=== PATIENT | male | born 1995 | race Caucasian/White ===

== ENCOUNTER 2016-12-28 22:51 | Emergency (ER) | payer OTHER ==
--- NOTE | 2016-12-28 22:57 | ERPHSYRPT ---
- History of Present Illness Time Seen by Provider: 12/28/16 22:56 Source: patient Exam Limitations: no limitations Physician History: Pt. with L lower tooth pain for past 2-3 days. States have dental caries and have had previous teeth pulled. Tried temporary tooth filling that did not help. Have not taken any medicines as well. No fever, chills or systemic symptoms. Timing/Duration: day(s) (3) Severity: mild Modifying Factors: Improves With: eating (worsens), other (drinking soda) Associated Symptoms: denies symptoms Allergies/Adverse Reactions: No Known Drug Allergies Allergy (Unverified 04/17/14 18:43) Home Medications: No Home Meds 1 ea UD 04/17/14 [History] Hx Tetanus, Diphtheria Vaccination/Date Given: Yes (UNKNOWN) Hx Influenza Vaccination/Date Given: No Hx Pneumococcal Vaccination/Date Given: No - Review of Systems Constitutional: No Fever, No Chills Eyes: No Symptoms Ears, Nose, & Throat: No Symptoms, Other (tooth pain), No Loose Teeth, No Throat Swelling Respiratory: No Cough, No Dyspnea Cardiac: No Chest Pain, No Edema, No Syncope Abdominal/Gastrointestinal: No Abdominal Pain, No Nausea, No Vomiting, No Diarrhea Genitourinary Symptoms: No Dysuria Musculoskeletal: No Back Pain, No Neck Pain Skin: No Rash Neurological: No Dizziness, No Focal Weakness, No Sensory Changes Psychological: No Symptoms Endocrine: No Symptoms All Other Systems: Reviewed and Negative - Past Medical History Pertinent Past Medical History: Yes Neurological History: No Pertinent History ENT History: No Pertinent History Cardiac History: No Pertinent History Respiratory History: Other Endocrine Medical History: No Pertinent History Musculoskeletal History: No Pertinent History GI Medical History: No Pertinent History History: No Pertinent History Psycho-Social History: No Pertinent History Other Medical History: SCOLIOSIS - Past Surgical History Past Surgical History: No Neuro Surgical History: No Pertinent History Cardiac: No Pertinent History Respiratory: No Pertinent History Gastrointestinal: No Pertinent History Genitourinary: No Pertinent History Musculoskeletal: No Pertinent History Male Surgical History: No Pertinent History - Social History Smoking Status: Current every day smoker How long have you smoked: 2 Exposure to second hand smoke: Yes Drug Use: none Patient Lives Alone: Yes - Nursing Vital Signs Nursing Vital Signs: Initial Vital Signs Temperature 98.2 F Temperature Source Oral Pulse Rate 81 Respiratory Rate 18 Blood Pressure [Right Arm] 144/82 Pain Intensity 9 - Physical Exam General Appearance: no apparent distress, alert Eye Exam: PERRL/EOMI, eyes nml inspection Ears, Nose, Throat Exam: TMs normal, pharynx normal, moist mucous membranes, other (Multiple dental caries noted. No increase gum swelling, minimal tenderness to palpation to L lower molar area.) Neck Exam: normal inspection, non-tender, supple, full range of motion Respiratory Exam: normal breath sounds, lungs clear, No respiratory distress Cardiovascular Exam: regular rate/rhythm, normal heart sounds, normal peripheral pulses Gastrointestinal/Abdomen Exam: soft, normal bowel sounds, No tenderness, No mass Back Exam: normal inspection, normal range of motion, No CVA tenderness, No vertebral tenderness Extremity Exam: normal inspection, normal range of motion, pelvis stable Neurologic Exam: alert, oriented x 3, cooperative, normal mood/affect, nml cerebellar function, nml station & gait, sensation nml, No motor deficits Skin Exam: normal color, warm, dry, No rash Lymphatic Exam: No adenopathy - Course Nursing assessment & vital signs reviewed: Yes - Progress Progress: improved Progress Note: 12/28/16 23:10 Pt. given PenVK and Motrin - Departure Time of Disposition: 23:10 Departure Disposition: Home Clinical Impression: Dental caries Condition: Stable Critical Care Time: No Instructions: Tooth Decay Additional Instructions: RX: PenVK Motrin 800mg every 8 hrs with food for pain Follow up with your dentist in 2-3 days Return for worse pain, swelling, fever or any problems. Prescriptions: Penicillin V Potassium 500 mg PO QID #40 tablet
[2016-12-28] MEDS ORDERED: PEN-VEE K PO ONE (23:15)
[2016-12-28] MEDS ORDERED: MOTRIN 600 MG PO ONE (23:15)
[2016-12-28] MEDS ORDERED: MOTRIN 600 MG ONE (23:25)
[2016-12-28] MEDS ORDERED: PEN-VEE K ONE (23:25)
[2016-12-28 23:42] VITALS: BP 110/57; PULSE 90; O2SAT 98
== END 2016-12-28 23:50 | disposition home or self-care (01) ==
LOC: ED 22:51
DX: K02.9 Dental caries, unspecified (principal)
CPT/HCPCS: 99281; 99283; A9270-GY

== ENCOUNTER 2021-06-07 20:29 | Emergency (ER) | payer OTHER ==
[2021-06-07 20:40] VITALS: O2SAT 99
[2021-06-07] MEDS ORDERED: Cleocin Phosphate IV 600 MG/4 ML IM STA (21:03)
--- NOTE | 2021-06-07 21:05 | ERPHSYRPT ---
- History of Present Illness Time Seen by Provider: 06/07/21 20:45 Source: patient Exam Limitations: no limitations Patient Subjective Stated Complaint: I have a spot on my leg that really hurts, draining just a little Triage Nursing Assessment: pt has abscess area to rt upper thigh/groin area. Reddened and warm to touch, no drainage noted at this time. Bruised around area due to pt squeezing it. Physician History: Patient is a 25-year-old male presents to our ED for evaluation of cellulitis to his right upper thigh. Patient states that the area started off and is a papular lesion. Patient has been trying to squeeze it and "pop it". Patient states the area became more red and tender. Patient currently has a 4 x 4 centimeter area of cellulitis. No lymphangitis. Early right inguinal lymphadenopathy observed. No involvement of the scrotum. No scrotal pain or tenderness. No abdominal pain. No trauma. No fever. Tetanus is up-to-date. Symptoms are constant. Symptoms are moderate in intensity. Pain described as an ache that is well localized. Pain primarily with palpation. Minimal to no pain at rest. Timing/Duration: today Severity: moderate Modifying Factors: Improves With: nothing Associated Symptoms: denies symptoms Allergies/Adverse Reactions: tramadol Adverse Reaction (Severe, Verified 06/07/21 20:49) Difficulty Swallowing Home Medications: Buspirone HCl [Buspar] 30 mg PO BID 06/07/21 [History] Hx Tetanus, Diphtheria Vaccination/Date Given: Yes Hx Influenza Vaccination/Date Given: No Hx Pneumococcal Vaccination/Date Given: No Immunizations Up to Date: Yes Travel Risk - International Travel Have you traveled outside of the country in past 3 weeks: No - Coronavirus Screening Are you exhibiting any of the following symptoms?: No Close contact with a COVID-19 positive Pt in past 14-21 Days: No - Vaccine Status Have you recieved a Covid-19 vaccination: No - Review of Systems Constitutional: No Symptoms, No Fever, No Chills Eyes: No Symptoms Ears, Nose, & Throat: No Symptoms Respiratory: No Symptoms, No Cough, No Dyspnea Cardiac: No Symptoms, No Chest Pain, No Edema, No Syncope Abdominal/Gastrointestinal: No Symptoms, No Abdominal Pain, No Nausea, No Vomiting, No Diarrhea Genitourinary Symptoms: No Symptoms, No Dysuria Musculoskeletal: No Symptoms, No Back Pain, No Neck Pain Skin: No Symptoms, No Rash Neurological: No Symptoms, No Dizziness, No Focal Weakness, No Sensory Changes Psychological: No Symptoms Endocrine: No Symptoms Hematologic/Lymphatic: No Symptoms Immunological/Allergic: No Symptoms All Other Systems: Reviewed and Negative - Past Medical History Pertinent Past Medical History: Yes Neurological History: No Pertinent History ENT History: No Pertinent History Cardiac History: Other Respiratory History: Asthma Endocrine Medical History: No Pertinent History Musculoskeletal History: No Pertinent History GI Medical History: No Pertinent History History: No Pertinent History Psycho-Social History: No Pertinent History Male Reproductive Disorders: No Pertinent History Other Medical History: heart murmur - Past Surgical History Past Surgical History: Yes Neuro Surgical History: No Pertinent History Cardiac: No Pertinent History Respiratory: No Pertinent History Gastrointestinal: No Pertinent History Genitourinary: No Pertinent History Musculoskeletal: Orthopedic Surgery Male Surgical History: No Pertinent History - Social History Smoking Status: Current every day smoker How long have you smoked: 4 yrs Exposure to second hand smoke: Yes Drug Use: none Patient Lives Alone: No - Nursing Vital Signs Nursing Vital Signs: Initial Vital Signs Temperature 97.9 F 06/07/21 20:30 Pulse Rate 97 H 06/07/21 20:30 Respiratory Rate 18 06/07/21 20:30 Blood Pressure 114/80 06/07/21 20:30 O2 Sat by Pulse Oximetry 99 06/07/21 20:30 Pain Scale Pain Intensity 5 - Physical Exam General Appearance: no apparent distress, alert Eye Exam: PERRL/EOMI, eyes nml inspection Ears, Nose, Throat Exam: normal ENT inspection, TMs normal, pharynx normal, moist mucous membranes Neck Exam: normal inspection, non-tender, supple, full range of motion Respiratory Exam: normal breath sounds, lungs clear, No respiratory distress Cardiovascular Exam: regular rate/rhythm, normal heart sounds, normal peripheral pulses Gastrointestinal/Abdomen Exam: soft, normal bowel sounds, No tenderness, No mass Male Genitalia Exam: normal genitalia Back Exam: normal inspection, normal range of motion, No CVA tenderness, No vertebral tenderness Extremity Exam: normal inspection, normal range of motion, pelvis stable Neurologic Exam: alert, oriented x 3, cooperative, normal mood/affect, sensation nml, No motor deficits Skin Exam: normal color, warm, dry, No rash Lymphatic Exam: No adenopathy SpO2 Interpretation: normal SpO2: 99 O2 Delivery: Room Air - Course Nursing assessment & vital signs reviewed: Yes Ordered Tests: Medication Summary Generic Name Dose Route Start Last Admin Trade Name Stefania PRN Reason Stop Dose Admin Ibuprofen 800 mg 06/07/21 21:15 Ibuprofen 400 Mg Tablet PO 06/07/21 21:16 STAT ONE Discontinued Medications Generic Name Dose Route Start Last Admin Trade Name Freq PRN Reason Stop Dose Admin Clindamycin Phosphate 600 mg 06/07/21 21:03 06/07/21 21:09 Clindamycin Phosphate 600 Mg/4 Ml Vial IM 06/07/21 21:04 600 mg ONCE STA Administration Clindamycin Phosphate Confirm 06/07/21 21:06 Clindamycin Phosphate 600 Mg/4 Ml Vial Administered 06/07/21 21:07 Dose 600 mg .ROUTE .STK-MED ONE Ibuprofen 600 mg 06/07/21 21:14 Ibuprofen 600 Mg Tablet PO 06/07/21 21:15 STAT ONE - Progress Progress: improved Progress Note: Patient reassessed. Pain improved. Patient received ibuprofen for pain control. Patient also received intramuscular clindamycin. A prescription for the same was forwarded to patient's pharmacy. Tetanus up-to-date. No indication for tetanus update at this time. The area of involvement was demarcated so that patient can follow the area of cellulitis to assure that it is not progressing in size. Patient agrees to follow-up with his primary care doctor within 40 hours for reevaluation. He voices no other complaints concerns at this time. Portions of this note were created with voice recognition technology. There may be grammatical, spelling, punctuation or sound alike errors 06/07/21 21:18 Counseled pt/family regarding: diagnosis, need for follow-up - Departure Departure Disposition: Home Clinical Impression: Cellulitis, indurated skin Condition: Stable Critical Care Time: No Referrals: JAMIR TOMAS [Primary Care Provider] - Follow up/PCP as directed Instructions: Cellulitis (Skin Infection), Adult (DC) Additional Instructions: Discharge/Care Plan VENUS ROQUE JENNIFER BEASLEY was seen on 06/07/21 in the Emergency Room. The patient was counseled regarding Diagnosis,Lab results, Imaging studies, need for follow up and when to return to the Emergency Room. Prescriptions given: Discharge Note I have spoken with the patient and/or caregivers. I have explained the patient's condition, diagnosis and treatment plan based on the information available to me at this time. I have answered the patient's and/or caregiver's questions and addressed any concerns. The patient and/or caregivers have as good understanding of the patient's diagnosis, condition and treatment plan as can be expected at this point. The vital signs have been stable. The patient's condition is stable and appropriate for discharge from the emergency department. The patient will pursue further outpatient evaluation with the primary care physician or other designated or consulting physician as outlined in the discharge instructions. The patient and/or caregivers are agreeable to this plan of care and follow-up instructions have been explained in detail. The patient and/or caregivers have received these instruction. The patient/and or caregivers are aware that any significant change in condition or worsening of symptoms should prompt an immediate return to this or the closest emergency department or call 911. Prescriptions: Clindamycin HCl 150 mg [Cleocin 150 mg Capsule] 2 cap PO QID 7 Days #56 cap
[2021-06-07] MEDS ORDERED: Cleocin Phosphate IV 600 MG/4 ML ONE (21:06)
[2021-06-07] MEDS ORDERED: MOTRIN 600 MG PO ONE (21:14)
[2021-06-07] MEDS ORDERED: MOTRIN 400 MG PO ONE (21:15)
[2021-06-07 21:16] VITALS: BP 104/69; PULSE 88
[2021-06-07] MEDS ORDERED: MOTRIN 600 MG ONE (21:16)
== END 2021-06-07 21:22 | disposition home or self-care (01) ==
LOC: ED 20:29
DX: L03.115 Cellulitis of right lower limb (principal); R23.4 Changes in skin texture
CPT/HCPCS: 96372; 99283; A9270-GY